=== PATIENT | female | born 2000 | race Caucasian/White ===

== ENCOUNTER 2023-04-30 11:36 | Outpatient (CLI) | payer OTHER, SELFPAY ==
[2023-04-30 13:27] LABS: Thyroid Stimulating Hormone 0.561 uIU/mL (0.465-4.680)
[2023-05-03 13:09] LABS: Testosterone Total 57 ng/dL (2-45)
[2023-05-04 07:56] LABS: FSH 6.6 mIU/mL (***); LH 15.2 mIU/mL (***)
[2023-05-06 03:17] LABS: Estradiol, Ultrasensitive 364 pg/mL
== END 2023-04-30 11:37 | disposition home or self-care (01) ==
PROVIDERS: PCP Student in an Organized Health Care Education/Training Program; Visit Provider Student in an Organized Health Care Education/Training Program
DX: N91.2 Amenorrhea, unspecified (principal)
CPT/HCPCS: 36415; 82670; 83001; 83002; 84403; 84443

== ENCOUNTER → 2023-05-02 10:44 | Outpatient (CLI) | payer OTHER, SELFPAY ==
--- NOTE | ~2023-05-02 | US_ITS ---
EXAMINATION: US pelvic complete w TV DATE: 05/02/2023 11:38 INDICATION: Irregular periods Comparison:No prior studies for comparison. TECHNIQUE: Multiple transabdominal and endovaginal sonographic images of the pelvis performed. FINDINGS: The uterus measures 7.6 x 4.4 x 5.7 cm. The endometrial complex measures 11 mm. The right ovary measures 3.8 x 2.3 x 2.6 cm and the left ovary measures 3.5 x 1.7 x 2.6 cm. There ar e small follicles in each ovary. Normal doppler signal in both ovaries. There is no free fluid in the pelvis. There are no abnormal masses seen on either side. IMPRESSION: 1. Normal pelvic ultrasound. Reviewed, dictated and finalized at location A.
== END ==
PROVIDERS: PCP Student in an Organized Health Care Education/Training Program; Visit Provider Student in an Organized Health Care Education/Training Program
DX: N91.2 Amenorrhea, unspecified (principal)
CPT/HCPCS: 76830; 76856

== ENCOUNTER 2023-06-07 08:12 | Outpatient (CLI) | payer OTHER, SELFPAY ==
[2023-06-07 08:44] LABS: Basophils Percent Auto 0.5 % (0.2-1.2); Eosinophils Absolute Auto 0.1 K/mm3 (0-0.3); Eosinophils Percent Auto 1.4 % (0-4.4); Hematocrit 39.7 % (37.0-47.0); Hemoglobin 13.3 g/dL (12.0-15.0); Immature Granulocyte Absolute 0.02 K/mm3 (0.00-0.031); Immature Granulocyte Percent A 0.3 % (0-0.5); Lymphocytes Absolute Auto 1.31 K/mm3 (0.9-3.2); Lymphocytes Percent Auto 19.7 % (18.3-44.2); Mean Corpuscular HGB Conc 33.5 g/dl (32-36); Mean Corpuscular Hemoglobin 30.4 pg (26-34); Mean Corpuscular Volume 90.8 fl (80-100); Mean Platelet Volume 11.1 fl (7.4-10.4); Monocytes Absolute Auto 0.3 K/mm3 (0.1-0.6); Monocytes Percent Auto 5.1 % (2.6-8.5); Neutrophils Absolute Auto 4.9 K/mm3 (1.3-6.7); Platelet Count Result 235 k/mm3 (150-375); Red Blood Count 4.37 M/mm3 (4.2-5.4); Red Cell Distribution Width 12.9 % (11.5-14.5); White Blood Count 6.6 K/mm3 (4.5-10.0)
[2023-06-07 09:28] LABS: HIV 1/2 Ab P24 Ag Result Negative (Negative)
[2023-06-07 09:41] LABS: Hepatitis B Surface Antigen Negative (Negative); Rubella IgG Antibody 48.1 IU/ML
[2023-06-09 05:59] LABS: Rapid Plasma Reagin Non-Reactive (NonReactive)
== END 2023-06-07 08:13 | disposition home or self-care (01) ==
LOC: ANHLAB 08:13
PROVIDERS: PCP Student in an Organized Health Care Education/Training Program; Visit Provider Student in an Organized Health Care Education/Training Program
DX: N94.89 Other specified conditions associated with female genital organs and menstrual cycle (principal)
CPT/HCPCS: 36415; 84702; 85025; 86592; 86644; 86703; 86747; 86762; 86787; 86850; 86900; 86901; 87340; G0432

== ENCOUNTER 2023-11-06 07:38 | Outpatient (CLI) | payer OTHER, SELFPAY ==
[2023-11-06 09:44] LABS: Basophils Percent Auto 0.3 % (0.2-1.2); Eosinophils Absolute Auto 0.1 K/mm3 (0-0.3); Eosinophils Percent Auto 1.1 % (0-4.4); Hematocrit 41.6 % (37.0-47.0); Hemoglobin 13.4 g/dL (12.0-15.0); Immature Granulocyte Absolute 0.16 K/mm3 (0.00-0.031); Immature Granulocyte Percent A 1.6 % (0-0.5); Lymphocytes Absolute Auto 1.66 K/mm3 (0.9-3.2); Lymphocytes Percent Auto 16.2 % (18.3-44.2); Mean Corpuscular HGB Conc 32.2 g/dl (32-36); Mean Corpuscular Hemoglobin 30.3 pg (26-34); Mean Corpuscular Volume 94.1 fl (80-100); Mean Platelet Volume 11.3 fl (7.4-10.4); Monocytes Absolute Auto 0.7 K/mm3 (0.1-0.6); Monocytes Percent Auto 6.3 % (2.6-8.5); Neutrophils Absolute Auto 7.7 K/mm3 (1.3-6.7); Neutrophils Percent Auto 74.5 % (45.5-73.1); Platelet Count Result 239 k/mm3 (150-375); Red Blood Count 4.42 M/mm3 (4.2-5.4); Red Cell Distribution Width 12.7 % (11.5-14.5); White Blood Count 10.3 K/mm3 (4.5-10.0)
[2023-11-06 10:12] LABS: Glucose 1 Hour PP 50gm Dose 65 mg/dL
[2023-11-06 10:48] LABS: HIV 1/2 Ab P24 Ag Result Negative (Negative)
== END 2023-11-06 07:39 | disposition home or self-care (01) ==
LOC: ANHLAB 07:40
PROVIDERS: PCP Student in an Organized Health Care Education/Training Program; Visit Provider Obstetrics & Gynecology
DX: Z34.90 Encounter for supervision of normal pregnancy, unspecified, unspecified trimester (principal); R30.0 Dysuria; Z3A.00 Weeks of gestation of pregnancy not specified
CPT/HCPCS: 36415; 82947; 85025; 86703; 87086; 87088; G0432

== ENCOUNTER 2023-12-11 10:24 | Outpatient (CLI) | payer OTHER, SELFPAY ==
[2023-12-11] VITALS (28 sets, daily range): BP systolic 99–126; BP diastolic 54–68; PULSE 85–112; O2SAT 97–100; BMI 40.4
[2023-12-11 11:21] LABS: Basophils Percent Auto 0.3 % (0.2-1.2); Eosinophils Absolute Auto 0.1 K/mm3 (0-0.3); Eosinophils Percent Auto 1.3 % (0-4.4); Hematocrit 37.8 % (37.0-47.0); Hemoglobin 12.8 g/dL (12.0-15.0); Immature Granulocyte Absolute 0.19 K/mm3 (0.00-0.031); Immature Granulocyte Percent A 1.8 % (0-0.5); Lymphocytes Absolute Auto 1.47 K/mm3 (0.9-3.2); Lymphocytes Percent Auto 13.9 % (18.3-44.2); Mean Corpuscular HGB Conc 33.9 g/dl (32-36); Mean Corpuscular Hemoglobin 30.8 pg (26-34); Mean Corpuscular Volume 90.9 fl (80-100); Mean Platelet Volume 11.2 fl (7.4-10.4); Monocytes Absolute Auto 0.6 K/mm3 (0.1-0.6); Neutrophils Absolute Auto 8.1 K/mm3 (1.3-6.7); Neutrophils Percent Auto 76.7 % (45.5-73.1); Platelet Count Result 238 k/mm3 (150-375); Red Blood Count 4.16 M/mm3 (4.2-5.4); Red Cell Distribution Width 13.2 % (11.5-14.5); White Blood Count 10.6 K/mm3 (4.5-10.0)
--- NOTE | 2023-12-11 11:25 | PC.NURSE ---
Pt is just now able to use the bathroom to leave a urine sample.
[2023-12-11 11:28] LABS: Alanine Aminotransferase 15 U/L (6-35); Albumin Level 3.6 g/dL (3.5-5.1); Alkaline Phosphatase 106 U/L (38-126); Anion Gap 6 mmol/L (4-12); Aspartate Amino Transferase 18 U/L (14-36); Bilirubin,Total 0.4 mg/dL (0.2-1.3); Blood Urea Nitrogen 5 mg/dL (7-17); Calcium 8.5 mg/dL (8.4-10.2); Carbon Dioxide 22 mmol/L (22-30); Chloride 108 mmol/L (98-107); Estimated Glomerular Filt Rate > 60; Glucose 93 mg/dL (65-110); Potassium 3.8 mmol/L (3.4-5.0); Sodium 136 mmol/L (137-145); Uric Acid 4.3 mg/dL (2.5-7.5)
[2023-12-11] MEDS: ACETAMINOPHEN 500 MG TABLET 1000 MG PO (11:47)
[2023-12-11 11:54] LABS: Appearance Urine Clear (Clear); Bacteria Urine Rare /hpf; Bilirubin Urine Negative (Negative); Blood Urine Negative (Negative); Color Urine Yellow (Yellow); Glucose Urine UA Negative (Negative); Ketones Urine Negative (Negative); Leukocyte Esterase Ur Trace LEU/UL (Negative); Nitrate Urine Negative (Negative); Non Pathogenic Casts 0-2; Protein Urine Negative (Negative); Specific Grav Ur 1.013 (1.001-1.035); Squamous Epithelial Cell Urine Few /hpf (Few); Urobilinogen Urine 0.2 mg/dL (<2.0); WBC Urine 0-5 /hpf (0-3); pH Urine 8.5 (5.0-9.0)
[2023-12-11 11:57] LABS: Add Urine Microscopic? YES
[2023-12-11 12:00] LABS: Creatinine Urine 88.8 mg/dL; Total Protein Urine Random 12 mg/dL; Ur Ttl Prot Creatinine Ratio 0.14 mg/mg (0-0.20)
--- NOTE | 2023-12-11 12:18 | PC.NURSE ---
Dr. Bourne informed of BP's, lab results, reactive NST, gave pt Tylenol 30 mins ago and headache has decreased from a 5 down to 2 out of 10. Discussed how pt feels like she gets anxious / stressed, then feels her HR increase, and then her BP increases. Pt had blurred vision and emesis this am. Discussed pt was on Sertraline but not taking anymore. To ask pt if she wants to resume Sertraline.
--- NOTE | 2023-12-11 12:29 | PC.NURSE ---
Dr. Bourne informed pt had previously taken Sertraline without any improvement in depression and anxiety and took it for 2 weeks during this and stopped because it wasn't helping and she doesn't want to take it. Informed I reviewed relaxing and calming techniques with pt to try when she starts feeling anxious/ stressed. To use those techniques first and then she can check her BP or if she is unable to calm herself she can check her BP then. states pt doesn't have to do the 24 hr urine she was scheduled to start tomorrow since her PCR is well within normal limits. OK to discharge to home.
== END 2023-12-11 12:35 | disposition home or self-care (01) ==
LOC: ANHOBOP 10:29 → ANHOBPP 10:30
PROVIDERS: PCP Physician Assistant; Visit Provider Obstetrics & Gynecology
DX: O13.9 Gestational [pregnancy-induced] hypertension without significant proteinuria, unspecified trimester (principal); Z3A.00 Weeks of gestation of pregnancy not specified
CPT/HCPCS: 36415; 59025; 80053; 81001; 82570; 84156; 84550; 85025; 99199; A9270

== ENCOUNTER 2023-12-18 09:00 | Observation (INO) | payer OTHER, SELFPAY ==
[2023-12-18] VITALS (33 sets, daily range): BP systolic 100–113; BP diastolic 62–74; PULSE 87–110; O2SAT 96–100; BMI 40.9
--- NOTE | 2023-12-18 09:44 | OBADM ---
This patient, Agnes Diaz, admitted to the OB room 116 for observation. Patient/family oriented to hospital policies and general routines including ID bracelet, bed and alarms, visiting hours, pain management, procedures, bathroom and other care routines, personal items, smoking policy, room service/diet, and visiting hours. Patient/Family are encouraged to report perceived risks to care and to ask questions if they do not understand what they are told or what they should do.
[2023-12-18 09:59] LABS: Appearance Urine Cloudy (Clear); Bacteria Urine 2+ /hpf; Bilirubin Urine 1+ (Negative); Blood Urine Negative (Negative); Color Urine Dark Yellow (Yellow); Glucose Urine UA Negative (Negative); Ketones Urine Trace mg/dL (Negative); Leukocyte Esterase Ur Trace LEU/UL (Negative); Need Manual Microscopic Reviewed; Nitrate Urine Negative (Negative); Non Pathogenic Casts 0-2; Protein Urine Trace mg/dL (Negative); Specific Grav Ur 1.027 (1.001-1.035); Squamous Epithelial Cell Urine Moderate /hpf (Few); pH Urine 6.5 (5.0-9.0)
[2023-12-18 10:02] LABS: Add Urine Microscopic? YES
--- NOTE | 2023-12-22 09:31 | P.PNOB_ITS ---
OB - Triage/Final Diagnosis Visit Information Comments/Additional reasons for admission: I have assessed the risk for this patient, Agnes Diaz, and determined that she would benefit from observation care. Evaluation Laboratory results: Laboratory Tests 12/18/23 09:28 Urine Color Dark yellow Urine Appearance Cloudy H Urine pH 6.5 Ur Specific [place] 1.027 Urine Protein Trace Urine Glucose (UA) Negative Urine Ketones Trace H Ur Blood (Man) Negative Urine Nitrate Negative Urine Bilirubin 1+ H Urine Urobilinogen 1.0 Add Ur Microanalysis Reviewed Leukocyte Esterase Rfl Trace H Urine RBC 6-10 H Urine WBC 6-10 H Ur Squamous Epith Cells Moderate Urine Bacteria 2+ H Urine Casts 0-2 Final Diagnosis (1) Abdominal pain affecting : Code(s): O26.899 - Other specified related conditions, unspecified trimester; R10.9 - Unspecified abdominal pain Status: Acute
== END 2023-12-18 11:48 | disposition home or self-care (01) ==
PROVIDERS: Admitting Provider Obstetrics & Gynecology; PCP Physician Assistant; Visit Provider Obstetrics & Gynecology
DX: O26.893 Other specified pregnancy related conditions, third trimester (principal); R10.9 Unspecified abdominal pain; Z3A.35 35 weeks gestation of pregnancy
CPT/HCPCS: 81001; 84112; 87086; 87088; G0378; G0379

== ENCOUNTER 2023-12-31 17:42 | Outpatient (CLI) | payer OTHER, SELFPAY ==
[2023-12-31 19:21] VITALS: BP 110/66; PULSE 86
== END 2023-12-31 19:45 | disposition home or self-care (01) ==
LOC: ANHOBOP 19:00
PROVIDERS: PCP Physician Assistant; Visit Provider Obstetrics & Gynecology
DX: O42.90 Premature rupture of membranes, unspecified as to length of time between rupture and onset of labor, unspecified weeks of gestation (principal); Z3A.00 Weeks of gestation of pregnancy not specified
CPT/HCPCS: 59025; 84112

== ENCOUNTER 2024-01-14 09:56 | Outpatient (CLI) | payer OTHER, SELFPAY ==
[2024-01-14 10:38] LABS: Basophils Percent Auto 0.3 % (0.2-1.2); Eosinophils Absolute Auto 0.3 K/mm3 (0-0.3); Eosinophils Percent Auto 2.8 % (0-4.4); Hematocrit 39.3 % (37.0-47.0); Hemoglobin 13.1 g/dL (12.0-15.0); Immature Granulocyte Absolute 0.11 K/mm3 (0.00-0.031); Immature Granulocyte Percent A 1.2 % (0-0.5); Lymphocytes Absolute Auto 1.65 K/mm3 (0.9-3.2); Lymphocytes Percent Auto 17.8 % (18.3-44.2); Mean Corpuscular HGB Conc 33.3 g/dl (32-36); Mean Corpuscular Hemoglobin 30.2 pg (26-34); Mean Corpuscular Volume 90.6 fl (80-100); Mean Platelet Volume 11.5 fl (7.4-10.4); Monocytes Absolute Auto 0.7 K/mm3 (0.1-0.6); Monocytes Percent Auto 7.1 % (2.6-8.5); Neutrophils Absolute Auto 6.5 K/mm3 (1.3-6.7); Neutrophils Percent Auto 70.8 % (45.5-73.1); Platelet Count Result 214 k/mm3 (150-375); Red Blood Count 4.34 M/mm3 (4.2-5.4); Red Cell Distribution Width 13.2 % (11.5-14.5); White Blood Count 9.3 K/mm3 (4.5-10.0)
[2024-01-14 11:31] LABS: HIV 1/2 Ab P24 Ag Result Negative (Negative)
[2024-01-14 16:23] LABS: Rapid Plasma Reagin Non-Reactive (NonReactive)
--- NOTE | 2024-01-15 07:19 | PC.NURSE ---
Received call from blood bank regarding identification of positive antibody. The antibody is JKA THey have ordered appropriate blood for this antiboday and will have it available prior to . Dr. Bourne, the patient and nursery staff all updated.
== END 2024-01-14 09:57 | disposition home or self-care (01) ==
LOC: ANHLAB 09:58
PROVIDERS: PCP Physician Assistant; Visit Provider Obstetrics & Gynecology
DX: Z01.812 Encounter for preprocedural laboratory examination (principal)
CPT/HCPCS: 36415; 85025; 86592; 86703; 86850; 86870; 86880; 86900; 86901; 86902; 86905; 86922; 86971; G0432

== ENCOUNTER 2024-01-15 08:54 | Inpatient (IN) | payer OTHER, SELFPAY ==
--- NOTE | 2024-01-14 14:32 | PC.NURSE ---
Received a call from [facility] stating pt had an antibody when doing blood type that will need to be identified prior to her surgery. This is a send out lab and pt will need to return to have it drawn. Contacted patient and she is returning now. Notified Dr. Bourne.
[2024-01-15] VITALS (68 sets, daily range): BP systolic 74–126; BP diastolic 36–75; PULSE 57–141; RESP 13–20; TEMP 36.4–36.8; O2SAT 90–100; BMI 39.2; BMI 40.4
[2024-01-15] MEDS: ACETAMINOPHEN 500 MG TABLET 1000 MG PO (09:15)
[2024-01-15] MEDS: LACTATED RINGERS 1,000 ML 125 ML IV CONT (09:33)
--- NOTE | 2024-01-15 09:37 | LDADM ---
This patient, Agnes Diaz, was admitted to Labor/Delivery/Recovery 119 on 01/15/24 at 08:54. Plans for labor, pain management and were discussed with patient. Patient/family oriented to hospital policies and general routines including ID bracelet, bed and alarms, visiting hours, pain management, procedures, bathroom and other care routines, personal items, smoking policy, room service/diet and guest tray routines, security routines, and visiting hours. Patient/Family are encouraged to report perceived risks to care and to ask questions if they do not understand what they are told or what they should do. See OBIX for further documentation.
[2024-01-15] MEDS: LACTATED RINGERS 1,000 ML 999 ML IV CONT (10:07)
--- NOTE | 2024-01-15 10:20 | WPDANESEPPF ---
Anes - Initial Pre Proc Eval Procedure: Operation Date: 01/15/24 07:30 Proposed Procedures p Primary Section - Katherine Bourne MD Date/Time: 01/15/24 10:20 Surgeon: Katherine Bourne MD Pre Op Diagnosis: c/s Patient Data Age: 23 Gender: F Height: 1.68 m Weight: 113.6 kg Last Vital Signs Pulse 85 01/15/24 10:00 BP 117/74 01/15/24 10:00 Allergies Allergy/AdvReac Type Severity Reaction Status Date / Time No Known Allergies Allergy Verified 01/14/24 08:53 Home Medications Medication Instructions Recorded Confirmed Type vits no.126-ferrous fum 1 tablet PO DAILY 06/06/23 01/15/24 History 28 mg iron-folic acid 800 mcg tablet (Classic ) magnesium 200 mg tablet 400 mg PO DAILY 12/11/23 01/15/24 History metoclopramide HCl 10 mg tablet 10 mg PO Q6H PRN nausea and 12/12/23 01/14/24 Rx (Reglan) vomiting #20 tabs promethazine 25 mg tablet 25 mg PO Q6H PRN nausea and 12/12/23 01/15/24 Rx vomiting #30 tabs acetaminophen 500 mg capsule 1,000 mg PO Q6H PRN Pain 12/18/23 01/14/24 History Patient hx anesthesia problems: none Family hx anesthesia problems: none Results Review: All pre-operative results and documents have been reviewed as part of the pre-operative evaluation. [facility] Past Medical History Medical History ADHD CRPS (complex regional pain syndrome type I) Suppression of menses Surgical History Surgical History (Updated 01/15/24 @ 10:21 by Steffen Burnett MD) H/O arthroscopic knee surgery History of kidney surgery Family History Family History Mother Thyroid cancer Father Diabetes mellitus Grandparent Diabetes mellitus Social History Social History Smoking status: Never smoker Second hand tobacco smoke exposure: No Alcohol intake: current Alcohol use details: very rare Substance use: never Do You Feel Safe in your Home?: Yes Lack of Transportation: No Lack of Food: Sometimes True Current Housing: I Have Housing Concerned About Future Housing: No Difficulty Paying Gas/Electric Bills: No Difficulty Paying for Meds: No Currently Unemployed: No Education: Bachelor's Degree Difficulty w/ Childcare or Family Care: No Living arrangements: with family Occupation/Education: occupation Gender identity (if verbalized by the patient): Female Sexual Orientation (if Verbalized by the Patient): Straight or Heterosexual Spiritual care concerns: No Anes - Eval Final PreProcedure Day of Procedure 01/15/24 10:20 Patient weight: obese Heart: regular rate and rhythm Lungs: clear to auscultation Airway: Mallampati scale class II Neurological: alert and oriented Last oral intake: >/= 8 hours ASA classification: II Emergent: no Anesthetic plan: proceed Anesthesia type and monitoring: regional spinal and standard monitoring Results Review: All pre-operative results and documents have been reviewed as part of the pre-operative evaluation. Informed Consent: The patient's anesthetic plan and its attendant risks and benefits were discussed with the patient/family/POA. Questions were solicited and answers provided to the satisfaction of the patient/family/POA.
[2024-01-15] MEDS: FAMOTIDINE 20 MG/2 ML VIAL IV PUSH (10:45)
[2024-01-15] MEDS: ONDANSETRON INJ 4 MG/2 ML VIAL IV PUSH (10:46)
--- NOTE | 2024-01-15 11:16 | PC.NURSE ---
1110--Dr. Bourne at for u/s, position now vertex per u/s. Pt. requesting to have c/s, Dr. Bourne discussing risk for c/s vs. vaginal delivery. Pt. requesting to have to time to discuss with her .
--- NOTE | 2024-01-15 11:22 | PM.IMHP ---
H&P: HPI History of Present Illness Date/Time: 01/15/24 10:40 Chief Complaint: breech Narrative: Agnes is a 23yo @ 39.0wks who presents for scheduled due to breech malpresentation. He has been moving normally; but not made any big movements. She has been having irregular contractions. No VB or LOF. On pre-op testing for her , she was found to have an antibody. It was sent off for further testing and has been confirmed as a weak Jka antibody. [facility] blood bank has provided us blood that is Jka negative. Her is complicated by: - Obesity - Complex region pain syndrome; PT referral (refused) - LGA fetus; AC/HC/BPD >98%ile - BREECH - Newly diagnosed weakly positive Jka antibody Review of Systems Constitutional: Constitutional: Denies chills, Denies fever(s) and Denies headache(s) Eyes: Eyes: Denies change in vision ENT: Denies headache(s) Cardiovascular: Cardiovascular: Denies chest pain and Denies dyspnea Respiratory: Respiratory: Denies dyspnea Genitourinary: Genitourinary: Denies abnormal vaginal bleeding and Denies vaginal discharge Neurologic: Denies headache(s) Psychiatric: Psychiatric: Denies anxiety and Denies depression [facility] Past Medical History Medical History ADHD CRPS (complex regional pain syndrome type I) Suppression of menses Surgical History Surgical History (Updated 01/15/24 @ 10:21 by Steffen Burnett MD) H/O arthroscopic knee surgery History of kidney surgery Family History Family History Mother Thyroid cancer Father Diabetes mellitus Grandparent Diabetes mellitus Social History Social History Smoking status: Never smoker Alcohol intake: current Alcohol use details: very rare Substance use: never Lack of Transportation: No Lack of Food: Never True Current Housing: I Have Housing Concerned About Future Housing: No Difficulty Paying Gas/Electric Bills: No Difficulty Paying for Meds: No Currently Unemployed: No Education: Bachelor's Degree Difficulty w/ Childcare or Family Care: No Living arrangements: with family Occupation/Education: occupation Gender identity (if verbalized by the patient): Female Sexual Orientation (if Verbalized by the Patient): Straight or Heterosexual Spiritual care concerns: No Meds Home Medications and Allergies Home Medications Medication Instructions Recorded Confirmed Type vits no.126-ferrous fum 1 tablet PO DAILY 06/06/23 01/15/24 History 28 mg iron-folic acid 800 mcg tablet (Classic ) magnesium 200 mg tablet 400 mg PO DAILY 12/11/23 01/15/24 History metoclopramide HCl 10 mg tablet 10 mg PO Q6H PRN nausea and 12/12/23 01/14/24 Rx (Reglan) vomiting #20 tabs promethazine 25 mg tablet 25 mg PO Q6H PRN nausea and 12/12/23 01/15/24 Rx vomiting #30 tabs acetaminophen 500 mg capsule 1,000 mg PO Q6H PRN Pain 12/18/23 01/14/24 History Allergies Allergy/AdvReac Type Severity Reaction Status Date / Time No Known Allergies Allergy Verified 01/14/24 08:53 Exam Const: General: cooperative, no acute distress and obese Nutritional Appearance: obese Orientation/consciousness: patient oriented x3 Resp: Effort & Inspection: normal respiratory effort Cardio: Rate: regular rate GI: GI Palp: No abdominal tenderness : Other: FHT's: 155's/ mod pattie/ + accels/ no decels - cat 1 TOCO: irregular ctxs Cervix: 1/thick/-4 Presentation: CEPHALIC confirmed on bedside US Skin: General skin exam: normal color Neuro: General: patient oriented x3 Extrem: General: normal to inspection Psych: Appearance: grossly normal Affect: normal affect Attitude: cooperative Assessment and Plan Assessment and plan (1) Breech presentation: Qualifiers: Fetus num
--- NOTE | 2024-01-15 11:22 | WPDHPUPDATE1 ---
History and Physical Update Update Date/Time: 01/15/24 10:45 History and Physical has been reviewed, including an updated exam of the patient. There are NO changes in the patient's condition. Risks, benefits, and alternatives have been discussed and questions answered. Patient agrees to proceed with primary section.
[2024-01-15] MEDS: ceFAZolin 2 GM/D5W 50 ML 2 GM/50 ML BAG IVPB (11:26)
--- NOTE | 2024-01-15 12:32 | W.PM.OBCSD ---
OB - Delivery Note Procedure Delivery date: 01/15/24 Pre-op diagnosis: Macrosomia (was breech but converted to cephalic; pt desired to still proceed with pLTCS) Post-op Diagnosis: Same Induction method: None Delivery monitor: External FHT and External Uterine Prior to decision for section, ACOG/SM labor guidelines were considered and discussed with the patient and staff. Decision made to proceed with the section.: Yes Procedure Performed: Primary Primary branch: low cervical, transverse Surgeon: Katherine Bourne MD Anesthesia type: Spinal Description of Procedure/Findings: Male fetus delivered cephalic; clear fluid. Normal tubes and ovaries bilaterally. Specimen: Yes (placenta) Estimated Blood Loss: 855 Pathology: Yes Complications: No immediate complications Condition: Stable Disposition: PACU [place] Baby Date of : 01/15/24 Time of : 11:59 Weeks of gestation at delivery: 39 gender: Male Weight (pounds): 10 Weight (ounces): 3 presentation: vertex Placenta delivery description: Expressed Cord Vessel Description: 3 Vessels and Delayed Cord Clamping score one minute: 8 score five minutes: 8 Narrative: Agnes was counseled on all risks and benefits in detail and counseled that since he verted to cephalic, we could do elective IOL. She declined IOL and desired to proceed with section due to him being LGA. She was taken to the operating room where spinal was placed. She was then prepped and draped in the normal sterile fashion. She received 2g Ancef and a time out was performed. A Pfannenstiel incision was made in the skin and carried down to the underlying fascia. The fascia was nicked on either side of the midline and the fascial incision was extended laterally and superiorly using curved Mohan scissors. The fascia was then elevated using Shawn clamps and the underlying rectus muscles were dissected off the fascia, superiorly and inferiorly. The rectus muscles were then in the midline and the peritoneum was entered bluntly. Once adequate exposure was obtained, a Mobius self retractor was placed within the abdomen. A bladder flap was created. A low transverse incision was made on the lower uterine segment and clear fluid was noted. The occiput was brought to the hysterotomy and the head was easily delivered. The shoulders and body then followed without complications. The had spontaneous cry and the mouth and nose were bulb suctioned. The cord was clamped and cut and the was handed off to the awaiting pediatric nurse. A segment of the cord was collected for cord gases. The remaining cord blood was collected for typing. Two large venous sinuses were noted to be bleeding and ring forceps were placed. With Pitocin infusing, the placenta delivered with gentle traction on the cord without complications. The uterus was then cleared out of all clots and debris using a clean, moist lap. The hysterotomy was then repaired in a running, interlocking fashion using 0 Vicryl. A second layer imbricating suture was then made using 0 Vicryl. The hysterotomy was found to be hemostatic and good uterine tone was noted. The bilateral adnexa were examined and found to be normal. The pelvis was cleared of all clots and fluid. The Mobius retractor was removed from the abdomen. The peritoneum, muscle, and fascia were examined and made hemostatic with Bovie cautery. The fascia was then repaired using a 0 Vicryl suture in a running fashion. The subcutaneous tissue was then irrigated and made hemostatic with Bovie cautery. The subcutaneous tissue was then reapproximated using 2-0 Vicryl. The skin was then closed using 4-0 Monocryl in a running subcuticular fashion. A Mepilex dressing was placed over the incision. Sponge, lap, needle and instrument counts were correct at the end of the procedure x2. The patient tolerated the procedure well and was taken
[2024-01-15] MEDS: fentaNYL CITRATE INJ (*CRX) 100 MCG/2 ML VIAL 25 MCG IV PUSH ×3 (13:02→14:44)
[2024-01-15] MEDS: LIDOCAINE 5% PATCH 1 PATCH TRANSDERM (13:08)
[2024-01-15] MEDS: OXYTOCIN 30 UNITS/NS 500 ML 30 UNITS/500 ML BAG 125 UNITS IV CONT (13:28)
[2024-01-15] MEDS: diphenhydrAMINE HCl INJ 50 MG/ML VIAL 25 MG IV PUSH ×3 (14:42→23:15)
--- NOTE | 2024-01-15 16:05 | OBPPTRN ---
1555-Patient transferred to post room #290 via stretcher. Support person present. Oriented to unit, room, information board, rooming in, admission packet and security measures. Patient verbalizes understanding.
[2024-01-15] MEDS: KETOROLAC 15 MG/ML VIAL (*BKC) IV PUSH ×2 (16:39→23:45)
[2024-01-15] MEDS: ACETAMINOPHEN 325 MG TABLET 650 MG PO ×2 (16:39→23:45)
[2024-01-15] MEDS: SIMETHICONE 80 MG TAB.CHEW PO (16:39)
[2024-01-15] MEDS: DOCUSATE SODIUM 100 MG CAPSULE PO (16:39)
[2024-01-15] MEDS: DEXTROSE 5%/0.45% SOD CHL 1,000 ML 125 ML IV CONT (19:10)
[2024-01-16] VITALS: BP 119/70; PULSE 61; RESP 20; TEMP 37.1; O2SAT 99
[2024-01-16 05:41] LABS: Basophils Percent Auto 0.3 % (0.2-1.2); Eosinophils Absolute Auto 0.2 K/mm3 (0-0.3); Eosinophils Percent Auto 1.4 % (0-4.4); Hematocrit 30.4 % (37.0-47.0); Hemoglobin 9.6 g/dL (12.0-15.0); Immature Granulocyte Absolute 0.09 K/mm3 (0.00-0.031); Immature Granulocyte Percent A 0.8 % (0-0.5); Lymphocytes Absolute Auto 1.36 K/mm3 (0.9-3.2); Lymphocytes Percent Auto 12.2 % (18.3-44.2); Mean Corpuscular HGB Conc 31.6 g/dl (32-36); Mean Corpuscular Hemoglobin 29.8 pg (26-34); Mean Corpuscular Volume 94.4 fl (80-100); Mean Platelet Volume 12.4 fl (7.4-10.4); Monocytes Absolute Auto 0.9 K/mm3 (0.1-0.6); Monocytes Percent Auto 8.4 % (2.6-8.5); Neutrophils Absolute Auto 8.6 K/mm3 (1.3-6.7); Neutrophils Percent Auto 76.9 % (45.5-73.1); Platelet Count Result 165 k/mm3 (150-375); Red Blood Count 3.22 M/mm3 (4.2-5.4); Red Cell Distribution Width 13.4 % (11.5-14.5); White Blood Count 11.2 K/mm3 (4.5-10.0)
[2024-01-16] MEDS: ACETAMINOPHEN 325 MG TABLET 650 MG PO ×3 (05:45→17:58)
[2024-01-16] MEDS: KETOROLAC 15 MG/ML VIAL (*BKC) IV PUSH ×2 (05:47→12:23)
--- NOTE | 2024-01-16 07:21 | P.PNOB_ITS ---
OB - PN: Subj Subjective Date/time seen: 01/16/24 09:00 Narrative: POD#1 Agnes reports doing well today. 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 Her pain is controlled. She is tolerating regular diet. She has already voided spontaneously. She has not passed gas. She has ambulated in her room, did feel slightly dizzy. She denies any issues with her incision. She is breast feeding/pumping, but will likely only bottle feed. She would like her son circumcised, but he is curr ently on D10 for low blood sugars. OB - PN: Obj Data Labs 01/16/24 03:16 OB - PN A/P Assessment and Plan (1) S/P section: Code(s): Z98.891 - History of uterine scar from previous surgery Status: Acute Plan day: 1 Plan: routine care Comments: - Venofer x1; drop in H/H appropriate for QBL during surgery, repeat CBC ordered for in the AM - PO pain meds - Regular diet - Ambulation and hydration encouraged - Continue putting baby to breast q2-3hr - Circumcision performed without issue Time Spent With Patient Time: Total time spent is greater than 50% in coordination of care (as documented) at patient's floor/unit and/or counseling patient: Review of Systems Constitutional: Constitutional: Denies chills, Denies fever(s) and Denies headache(s) Eyes: Eyes: Denies change in vision ENT: Denies dizziness and Denies headache(s) Cardiovascular: Cardiovascular: Denies chest pain, Denies palpitations and D enies dyspnea Respiratory: Respiratory: Denies cough and Denies dyspnea Gastrointestinal: Gastrointestinal: Denies nausea and Denies vomiting Genitourinary: Comments: normal bleeding Neurologic: Denies dizziness and Denies headache(s) Endocrine: Endocrine: Denies palpitations Exam Const: General: cooperative, healthy appearing, comfortable and no acute distress Orientation/consciousness: patient oriented x3 Resp: Effort & Inspection: normal respiratory effort Auscultation: clear to auscultation bilaterally Cardio: Rate: regular rate GI: Inspection: non-distended and incision (covered with clean dressing) GI Palp: Yes abdominal tenderness (appropriate) and Yes Soft to palpation Auscultation: normal bowel sounds : Other: fundus firm Skin: General skin exam: normal color Neuro: General: patient oriented x3 Extrem: General: normal to inspection Psych: Appearance: grossly normal Affect: normal affect Attitude: cooperative
--- NOTE | 2024-01-16 07:58 | WPDANLDPN2 ---
Anes-Prog Note L&D Date/Time: 01/16/24 07:58 Comfortable throughout: section Neuraxial method: spinal Epidural/Spinal procedure site: clean & non-tender Neuro status: Neuro function grossly intact. Cardiovascular status: normal Respiratory status: normal Airway patency: baseline Mental status: baseline Post-Op hydration status: normal Vital Signs: Last Vital Signs Temp 37.1 C 01/16/24 00:00 Pulse 61 01/16/24 00:00 Resp 20 01/16/24 00:00 BP 119/70 01/16/24 00:00 Pulse Ox 99 01/16/24 00:00 O2 Del Method Room Air 01/15/24 15:15 Pain score (VAS): 2/10 I/O: Intake & Output 01/15/24 01/15/24 01/16/24 15:59 23:59 07:59 Intake Total 1002.1 Output Total 855 400 Balance 147.1 -400 Post-procedural complaints: none Patient feedback: Patient satisfied with anesthetic care.
--- NOTE | 2024-01-16 07:58 | WPDANLDNPN2 ---
Anes-Prog Note L&D-Neuraxial Date/Time: 01/16/24 07:58 Neuraxial medications: intrathecal PF morphine Opiod-related complaints: none Patient feedback: Patient satisfied with post-operative pain management.
[2024-01-16 09:00] VITALS: BP 111/59; PULSE 82; RESP 16; TEMP 36.6; O2SAT 99
[2024-01-16] MEDS: IRON SUCROSE COMPLEX 500 MG in SODIUM CHLORIDE 0.9% IV 250 ML 79 MG IVPB (09:04)
[2024-01-16] MEDS: SIMETHICONE 80 MG TAB.CHEW PO ×3 (09:12→17:14)
[2024-01-16] MEDS: DOCUSATE SODIUM 100 MG CAPSULE PO ×2 (09:12→17:14)
[2024-01-16] MEDS: MULTIVIT/MIN/PREN/FOL AC/IRON TABLET 1 TAB PO (09:12)
[2024-01-16] MEDS: diphenhydrAMINE HCl INJ 50 MG/ML VIAL 25 MG IV PUSH (09:12)
[2024-01-16] MEDS: LIDOCAINE 5% PATCH 1 PATCH TRANSDERM ×2 (14:02→17:18)
[2024-01-16] MEDS: POLYSACCHARIDE IRON COMPLEX 150 MG CAPSULE PO (17:14)
[2024-01-16] MEDS: HYDROcodone/acetaminophen (*CRX) 5-325 MG TABLET 1 TAB PO ×2 (17:17→21:25)
[2024-01-16] MEDS: IBUPROFEN 600 MG TABLET PO (17:58)
[2024-01-16 20:44] VITALS: BP 96/53; PULSE 83; RESP 18; TEMP 36.8; O2SAT 98
[2024-01-17] MEDS: HYDROcodone/acetaminophen (*CRX) 5-325 MG TABLET 1 TAB PO ×4 (01:45→19:31)
[2024-01-17 04:52] LABS: Hematocrit 31.5 % (37.0-47.0); Hemoglobin 10.1 g/dL (12.0-15.0); Mean Corpuscular HGB Conc 32.1 g/dl (32-36); Mean Corpuscular Hemoglobin 30.1 pg (26-34); Mean Corpuscular Volume 93.8 fl (80-100); Mean Platelet Volume 12.1 fl (7.4-10.4); Platelet Count Result 177 k/mm3 (150-375); Red Blood Count 3.36 M/mm3 (4.2-5.4); Red Cell Distribution Width 13.8 % (11.5-14.5); White Blood Count 10.5 K/mm3 (4.5-10.0)
[2024-01-17] MEDS: ACETAMINOPHEN 325 MG TABLET 650 MG PO ×4 (05:46→18:15)
[2024-01-17] MEDS: IBUPROFEN 600 MG TABLET PO ×4 (05:46→18:14)
[2024-01-17 08:35] VITALS: BP 116/62; PULSE 93; RESP 16; TEMP 36.6
[2024-01-17] MEDS: POLYSACCHARIDE IRON COMPLEX 150 MG CAPSULE PO ×2 (08:40→18:15)
[2024-01-17] MEDS: MULTIVIT/MIN/PREN/FOL AC/IRON TABLET 1 TAB PO (08:41)
[2024-01-17] MEDS: DOCUSATE SODIUM 100 MG CAPSULE PO ×2 (08:41→18:15)
[2024-01-17] MEDS: SIMETHICONE 80 MG TAB.CHEW PO ×3 (08:41→18:14)
--- NOTE | 2024-01-17 10:06 | P.PNOB_ITS ---
OB - PN: Subj Subjective Date/time seen: 01/17/24 10:06 Interval history: She states pain improved with medication. Patient comments: tolerating diet and flatus present [place] baby status: other (Baby continues on IV dextrose.) OB - PN: Obj Data Labs 01/17/24 03:37 Labs: Laboratory Results - last 24 hr 01/17/24 03:37 WBC 10.5 H RBC 3.36 L Hgb 10.1 L Hct 31.5 L MCV 93.8 MCH 30.1 MCHC 32.1 RDW 13.8 Plt Count 177 MPV 12.1 H OB - PN A/P Assessment and Plan (1) Delivery by section: Status: Acute Assessment and Plan: POD2 s/p c/s. She is doing well. Routine care. Time Spent With Patient Time: Total time spent is greater than 50% in coordination of care (as documented) at patient's floor/unit and/or counseling patient: Exam Const: General: comfortable and no acute distress Resp: Effort & Inspection: normal respiratory effort Auscultation: clear to auscultation bilaterally Cardio: Rate: regular rate GI: Other: decreased bowel sounds, mildly distended, incision no drainage or erythema, intact Psych: Mental Status: mental status grossly normal Affect: normal affect
[2024-01-17 13:57] VITALS: BP 117/63; PULSE 80
[2024-01-17] MEDS: LIDOCAINE 5% PATCH 1 PATCH TRANSDERM (14:01)
[2024-01-17] MEDS: PROMETHAZINE HCL 25 MG TABLET PO (19:31)
[2024-01-17 20:00] VITALS: BP 113/66; PULSE 87; RESP 20; TEMP 37.1; O2SAT 99
[2024-01-18] MEDS: ACETAMINOPHEN 325 MG TABLET 650 MG PO ×2 (01:30→08:13)
[2024-01-18] MEDS: IBUPROFEN 600 MG TABLET PO ×2 (01:30→08:12)
[2024-01-18 07:23] VITALS: BP 102/61; PULSE 82; RESP 18; TEMP 36.6; O2SAT 98
[2024-01-18 08:00] VITALS: PULSE 82; RESP 18; O2SAT 98
[2024-01-18] MEDS: DOCUSATE SODIUM 100 MG CAPSULE PO (08:07)
[2024-01-18] MEDS: MULTIVIT/MIN/PREN/FOL AC/IRON TABLET 1 TAB PO (08:07)
[2024-01-18] MEDS: SIMETHICONE 80 MG TAB.CHEW PO (08:13)
--- NOTE | 2024-01-18 10:02 | PM.OBPNVD ---
OB - PN: Subj Subjective Date/time seen: 01/18/24 10:02 Interval history: She states pain improved with medication. Patient comments: pain well controlled, tolerating diet and flatus present [place] baby status: doing well OB - PN: Obj Data Labs 01/17/24 03:37 OB - PN A/P Assessment and Plan (1) Delivery by section: Status: Acute Assessment and Plan: POD3. Doing well. Baby doing well. Discharge home today. Discharge precautions discussed. Time Spent With Patient Time: Total time spent is greater than 50% in coordination of care (as documented) at patient's floor/unit and/or counseling patient: Exam Const: General: comfortable and no acute distress Resp: Effort & Inspection: normal respiratory effort Auscultation: clear to auscultation bilaterally GI: Other: dressing intact no soiling Psych: Mental Status: mental status grossly normal
--- NOTE | 2024-01-18 10:50 | PC.NURSE ---
Patient viewed the discharge video Mother & Baby Care, The First Two Weeks . Patient was given the opportunity and encouraged to ask questions. Patient verbalized understanding of information shared and has been given the mother/baby guide for home reference.
--- NOTE | 2024-01-18 20:22 | PM.OBDSVD ---
DS: Admitting Diagnosis Discharge Date 01/18/24 Admitting Diagnosis section Breech malpresentation verted to cephalic spontaneously Macrosomia JKA antibody DS: Discharge Diagnosis Discharge Diagnosis (1) S/P section: Code(s): Z98.891 - History of uterine scar from previous surgery Status: Acute (2) Jka antibody positive: Code(s): R76.8 - Other specified abnormal immunological findings in serum Status: Acute OB - DS: Summary OB Procedures : Ultrasound OB Procedures Intrapartum: low cervical, transverse OB Procedures: : None Peripartum Data Infant Delivery Method: Section Procedures: Procedures Operation Date: 01/15/24 07:30 Actual Procedure Side Surgeon p Section Katherine Bourne MD complications: none [place] 1: Gender: Male Disposition of : home Status at Discharge Functional status at discharge: independent ambulation Overall status at discharge: patient is back to baseline Time Spent with Patient Time attestation: Total time spent providing and/or coordinating discharge services: Time spent: Less than 30 minutes Exam Const: General: cooperative, comfortable, no acute distress and obese Orientation/consciousness: patient oriented x3 Resp: Effort & Inspection: normal respiratory effort Auscultation: clear to auscultation bilaterally Cardio: Rate: regular rate GI: Inspection: non-distended and incision (covered with clean dressing) GI Palp: No abdominal tenderness and Yes Soft to palpation Auscultation: normal bowel sounds : Other: fundus firm Skin: General skin exam: normal color Neuro: General: patient oriented x3 Extrem: General: normal to inspection Psych: Appearance: grossly normal Affect: normal affect Attitude: cooperative DS: Data Data Completed and Pending Pending studies at discharge: Pending at discharge 01/15/24 12:02 Surgical [PTH] Routine Discharge Plan Discharge Attending physician on discharge: Katherine Bourne Discharging Clinician: Dakota Sebastian Anticipated Discharge Date/Time: 01/18/24 10:00 Patient Disposition: Home, Self-Care Activity: may shower and pelvic rest Diet: regular Discharge Instructions: Education: Mom and Baby Guide Given to: Mother Follow-Up: Call your delivering provider's office for an appointment to be seen in: 4 Weeks Mom and baby should come to [facility] for the follow-up appointment. Appointment Date/Time: Friday, January 19, 2024 at 2:30 pm What to expect at your follow-up visit: Blood Pressure Check Physical Assessment Call [phone] if you are unable to keep your appointment time. BREAST CARE: * Wear a snug supportive bra. * For engorgement discomfort: Breast Feeding: * Apply warm moist washcloths * Express milk as needed to relieve engorgement * Wear loose clothing Bottle Feeding: * May apply ice packs * For sore nipples: * Identify correct latch-on * Apply warm moist washcloths before and after nursing * Air dry nipples after nursing * May apply Lansinoh cream to nipples ABDOMINAL INCISION: (if applicable) * Allow incision to air dry * Do NOT use lotions for powders on your incision * When showering, allow soap and water to run over the incision, but do not wash incision EPISIOTOMY/PERINEAL CARE: * Change your pad frequently throughout the day * You may take sitz baths several times a day (fill your bathtub with warm water and soak for 20 minutes.) Do NOT bathe in the water * No tub baths until seen by your physician - You may shower ACTIVITY: * Rest as much as possible. * Do not exercise or lift anything heavier than your baby (such as laundry or other children.) * Avoid stairs or driving as much as possible. * Do not put anything int
[2024-01-19 15:08] VITALS: BP 117/69; PULSE 91; RESP 18; TEMP 36.6; O2SAT 98
== END 2024-01-18 11:44 | disposition home or self-care (01) | DRG 788 ==
LOC: ANHOB2 01-18 10:49 → ANHLDR 01-19 13:53 → ANHOB2 01-19 13:53
PROVIDERS: Admitting Provider Obstetrics & Gynecology; PCP Physician Assistant; Visit Provider Obstetrics & Gynecology
PROC: 10D00Z1 Extraction of Products of Conception, Low, Open Approach (ICD-10-PCS; CPT 59514; principal; 2024-01-15 07:30)
DX: O32.1XX0 Maternal care for breech presentation, not applicable or unspecified (principal); O99.214 Obesity complicating childbirth; O36.63X0 Maternal care for excessive fetal growth, third trimester, not applicable or unspecified; Z3A.39 39 weeks gestation of pregnancy; Z37.0 Single live birth; R76.8 Other specified abnormal immunological findings in serum
CPT/HCPCS: 36415; 85025; 85027; 88307; A9270; J0690; J1200; J1756; J1885; J2274; J2371; J2405; J2590; J3010; J7050; J7120

== ENCOUNTER 2024-03-24 07:13 | Outpatient (CLI) | payer OTHER, SELFPAY ==
[2024-03-24 08:02] LABS: Beta HCG Quantitative < 2.39 mIU/ML
== END 2024-03-24 07:14 | disposition home or self-care (01) ==
LOC: ANHLAB 07:15
PROVIDERS: PCP Physician Assistant; Visit Provider Obstetrics & Gynecology
DX: R76.8 Other specified abnormal immunological findings in serum (principal); Z30.9 Encounter for contraceptive management, unspecified
CPT/HCPCS: 36415; 84702; 86850; 86880; 86902

== ENCOUNTER 2025-05-20 21:22 | Emergency (ER) | payer OTHER, SELFPAY ==
--- NOTE | ~2025-05-20 | XR_ITS ---
EXAMINATION: XR knee RT 3V, 05/20/2025 22:39 CDT HISTORY: pain, NKI COMPARISON: No comparisons available. Findings: No acute fracture or malalignment. No significant degenerative changes. Soft tissues unremarkable. Impression: No acute fracture or malalignment. Reviewed, dictated and finalized at location P. Impression: No acute fracture or malalignment.
[2025-05-20 21:25] VITALS: BP 118/77; PULSE 73; RESP 18; TEMP 36.7; O2SAT 100
[2025-05-20] MEDS: HYDROcodone/acetaminophen (*CRX) 5-325 MG TABLET 1 TAB PO (23:19)
[2025-05-20 23:23] LABS: Pregnancy On Board Control Positive
--- NOTE | 2025-05-21 01:11 | ED_ITS ---
HPI - Extremity Injury (Lower) General Chief Complaint: Extremity Injury, Lower Stated Complaint: R torn meniscus Time Seen by Provider: 05/20/25 23:55 Source: patient Mode of arrival: ambulatory Limitations: no limitations History of Present Illness HPI Narrative: Patient is a 25-year-old female who presents to the ED with report of right knee pain. Patient reports 2 nights ago, she twisted in bed and felt a pop in her right knee. Had some pain initially afterwards, but states this resolved on its own. She then stood up quickly from the couch tonight and felt a pop in her right knee again. Complains of significant pain. Has trouble ambulating, flexing/extending. Reports swelling. Denies numbness or any other injuries. States this feels similar to when she previously tore her left knee meniscus. Related Data Home Medications ?Medication ?Instructions ?Recorded ?Confirmed ?Last Taken ?Type dextroamphetamine-amphetamine ER PO 02/19/24 05/05/25 Unknown History 20 mg 24hr capsule,extend release Allergies Allergy/AdvReac Type Severity Reaction Status Date / Time No Known Allergies Allergy Verified 05/05/25 14:40 Review of Systems Review of Systems: All systems reviewed & are unremarkable except as noted in HPI. All systems reviewed & are unremarkable except as noted in HPI and below PMFSH Past Medical History Medical History Encounter for removal of intrauterine contraceptive device Single delivery by section 01/15/24 Jka antibody positive Suppression of menses ADHD CRPS (complex regional pain syndrome type I) Surgical History Surgical History H/O arthroscopic knee surgery History of kidney surgery Family History Family History Mother Thyroid cancer Father Diabetes mellitus Grandparent Diabetes mellitus Social History Social History Smoking status: Never smoker Second hand tobacco smoke exposure: No Alcohol intake: never Substance use: never Substance use type: does not use Do You Feel Safe in your Home?: Yes Lack of Transportation: No Lack of Food: Never True Current Housing: I Have Housing Concerned About Future Housing: No Difficulty Paying Gas/Electric Bills: No Difficulty Paying for Meds: No Currently Unemployed: No Education: Bachelor's Degree Difficulty w/ Childcare or Family Care: No Living arrangements: with family Occupation/Education: occupation Gender identity (if verbalized by the patient): Female Sexual Orientation (if Verbalized by the Patient): Straight or Heterosexual Spiritual care concerns: No Exam Narrative: GENERAL: Well appearing, well-nourished, non-toxic, in no acute distress. HEAD: Normocephalic, atraumatic. RESPIRATORY: Airway patent, respirations nonlabored. CARDIOVASCULAR: Regular rate and rhythm. Pedal pulses intact. MUSCULOSKELETAL: Moves all extremities. No gross deformities. Limited flexion/extension range of motion of right knee due to pain. Mild swelling noted throughout anterior right knee, tenderness to palpation throughout inferior and medial joint spaces. Sensation intact. No warmth or erythema. SKIN: Warm, dry, normal color. NEURO: A&O X3. Speech clear. No ataxic movements. PSYCHIATRIC: Appropriate mood and affect. Normal interaction. Course Vital Signs Vital signs: Vital Signs Temperature 98.1 F 05/20/25 21:25 Pulse Rate 73 05/20/25 21:25 Respiratory Rate 18 05/20/25 21:25 Blood Pressure 118/77 05/20/25 21:25 Pulse Oximetry 100 05/20/25 21:25 Oxygen Delivery Room Air 05/20/25 21:25 Temperature 98.1 F 05/20/25 21:25 Pulse Rate 68 05/21/25 01:47 Respiratory Rate 18 05/21/25 01:47 Blood Pressure 122/87 05/21/25 01:47 Pulse Oximetry 100 05/21/25 01:47 Oxygen Delivery Room Air 05/20/25 21:25 MDM - Extremity Injury (Lower) MDM Narrative Medical decision making narrative: Patient?s injury is consistent with musculoskeletal etiology. No signs of neurologic or vascular compromise on physical examination. Compartments are soft without signs of compartment syndrome. XR interpreted by myself without acute osseous abnormality, no obvious joint effusion. Pain is consistent with knee strain, possible internal derangement. Patient is felt to be stable for discharge home and further outpatient management and treatment. Given Ashkan bandage and crutches. Discussed rice therapy. Will refer to orthopedics for further evaluation. Given return precautions. She agrees with plan. Discharged in stable condition. Medical Records Attestation: I reviewed the patient's medical records. Lab Data Attestation: I reviewed the patient's lab results. Labs: Lab Results 05/20/25 Range/Units 23:09 Urine Test Negative Imaging Data Attestation: I personally reviewed and interpreted this imaging study as follows: My impression: XR R knee: no acute osseous abnormality. Discharge Plan Discharge Clinical Impression: Strain of right knee Qualifiers: Encounter type: initial encounter Qualified Code(s): S86.911A - Strain of unspecified muscle(s) and tendon(s) at lower leg level, right leg, initial encounter Patient Disposition: Home Condition: Stable Instructions: Antibiotic Form, Knee Sprain (ED), P.R.I.C.E. Treatment (ED) Additional Instructions: Recommend elevation of leg whenever able, frequent icing to right knee. Ashkan bandage for compression and support. Recommend Tylenol/ibuprofen as needed for pain. Winslow as needed for more severe pain. Follow-up with orthopedics for further evaluation. Call office on Friday to make appointment. Return to the ED if you experience worsening or severe pain/swelling, recurrent fall or injury, numbness, or any other symptoms of concern. Patient Language: Paraguayan Prescriptions: New hydrocodone-acetaminophen 5-325 mg tablet 1 tablet PO Q6H PRN (Reason: pain) Qty: 5 0RF No Action dextroamphetamine-amphetamine 20 mg capsule,extended release 24hr PO escitalopram oxalate [Lexapro] 5 mg tablet 5 mg PO DAILY Qty: 90 1RF Follow-up/Referrals: Yo Pinto MD [Physician, Orthopedics] Referral Note: ORTHOPEDICS PHYSICIAN NOT ON STAFF,NONSTAFF [Primary Care Provider] Time of Disposition: 01:19
[2025-05-21 01:47] VITALS: BP 122/87; PULSE 68; RESP 18; O2SAT 100
== END 2025-05-21 01:48 | disposition home or self-care (01) ==
PROVIDERS: Student in an Organized Health Care Education/Training Program; Emergency Provider Physician Assistant
DX: S86.911A Strain of unspecified muscle(s) and tendon(s) at lower leg level, right leg, initial encounter (principal); F90.9 Attention-deficit hyperactivity disorder, unspecified type; Z79.899 Other long term (current) drug therapy; X50.9XXA Other and unspecified overexertion or strenuous movements or postures, initial encounter
CPT/HCPCS: 73562; 81025; 99283; A9270

== ENCOUNTER 2025-05-25 15:47 | Outpatient (CLI) | payer OTHER, SELFPAY ==
--- NOTE | ~2025-05-25 | MR_ITS ---
EXAMINATION: MR knee RT wo con DATE: 05/25/2025 16:22 INDICATION: Unspecified injury of right lower leg. Right knee pain. TECHNIQUE: Magnetic resonance imaging (MRI) of the right knee was performed without intravenous contrast. Sequences included axial PD-weighted FS FSE, coronal PD-weighted FSE and PD-weighted FS FSE, sagittal PD-weighted FSE, and sagittal T2-weighted FS FSE. COMPARISON: Right knee radiographs 05/20/2025 FINDINGS: Medial compartment: Medial meniscus is normal. Medial compartment cartilage is normal. Lateral compartment: Lateral meniscus is normal. The lateral compartment cartilage is normal. Patellofemoral compartment: The patellar cartilage is normal. The trochlear cartilage is normal. Ligaments and tendons: The anterior and posterior cruciate ligaments are normal. Medial collateral ligament and lateral collateral ligament complex are intact. There is mild patellar tendinopathy. Fluid: There is a large knee joint effusion. There is trace fluid in a Messer's cyst. There is edema in the fat posterior to the femur. Bones/other: There is edema-like marrow signal intensity in femoral metaphysis, likely stress reaction. IMPRESSION: 1. Large knee joint effusion. Reviewed, dictated and finalized at location E.
--- OUTSIDE RECORDS SUMMARY | 2025-05-25 17:33 | XMS_ITS | Clinical Summary ---
Author Organization [facility] Address [address] [facility] [address] [place] [id number] Phone Care Team Providers Care Mortgage Specialist Name Role Phone Palmira Pena NP Primary Care Provider [phone] Allergies Active Allergy Reactions Criticality Noted Date Comments Latex Eye irritation Low 02/27/2021 Medications escitalopram (LEXAPRO) 5 mg tablet Take 1 tablet (5 mg total) by mouth daily 90 tablet 1 5 Active dextroamphetamine -amphetamine (ADDERALL) 5 mg tablet Take 1 tablet (5 mg total) by mouth daily 30 tablet 5 Active dextroamphetamine -amphetamine XR (ADDERALL XR) 20 mg 24 hr capsuleIndication s:Attention-Defic it Hyperactivity Disorder Take 1 capsule (20 mg total) by mouth every morning 30 capsule 5 Active dextroamphetamine -amphetamine XR (ADDERALL XR) 20 mg 24 hr capsuleIndication s:Attention-Defic it Hyperactivity Disorder Take 1 capsule (20 mg total) by mouth every morning 30 capsule 5 05/17/20 25 Discontinu ed(Reorder ) Active Problems Problem Noted Date Diagnosed Date Attention deficit hyperactivity disorder, combin ed type 10/29/2024 Overview (10/29/2024): Chronic, controlled. Patient to continue on Adderall XR 20 mg daily and an additional immediate release Adderall 5 mg PRN for long work days. Follow up in 6 months. Assessment & Plan (01/13/2025 2:52 PM CDT): Chronic, controlled. Patient to continue on Adderall XR 20 mg daily and an additional immediate release Adderall 5 mg PRN for long work days. Follow up in 6 months. Neck pain on right side 08/30/2024 Assessment & Plan (08/30/2024 7:02 AM DEXTRINE MIXER): C-spine Xray ordered. Patient to discontinue Robaxin and Naproxen. Patient prescribed Medrol dose pack and baclofen 10 mg PRN for pain. Patient referred to physical therapy. Patient instructed to call office if her pain does not improve with therapy and medication. Jka antibody positive 01/29/2024 Assessment & Plan (01/29/2024 2:28 PM CDT): newly Recurrent major depression 10/09/2022 Assessment & Plan (01/13/2025 2:50 PM CDT): Chronic, controlled with Lexapro 5 mg daily. Follow up in 6 months. Assessment & Plan (10/29/2024 4:24 PM CDT): Chronic, controlled with Lexapro 5 mg daily. Follow up in 6 months. Assessment & Plan (04/28/2024 2:28 PM CDT): Chronic, controlled without medications. Follow up in 6 months. Assessment & Plan (01/29/2024 2:23 PM CDT): This is a stable chronic condition with no SI HI continue current medications follow-up 6 months. Open door open Generalized anxiety disorder 10/09/2022 Assessment & Plan (01/13/2025 2:50 PM CDT): Chronic, controlled with Lexapro 5 mg daily. Follow up in 6 months. Assessment & Plan (10/29/2024 4:23 PM CDT): Chronic, controlled with Lexapro 5 mg daily. Follow up in 6 months. Assessment & Plan (08/30/2024 6:59 AM DEXTRINE MIXER): Chronic, controlled with Lexapro 5 mg daily. Follow up in 6 months. Assessment & Plan (04/28/2024 2:28 PM CDT): Chronic, controlled without medications. Follow up in 6 months. Assessment & Plan (01/29/2024 2:23 PM CDT): Patient is going to have a baby and wants to switch her antidepressant we talked about options and agree on Zoloft once she is her OB will determine if she can continue it. We did discuss the med use potential side effects. There was no SI HI. Assessment & Plan (10/09/2022 10:39 AM DEXTRINE MIXER): Patient is going to have a baby and wants to switch her antidepressant we talked about options and agree on Zoloft once she is her OB will determine if she can continue it. We did discuss the med use potential side effects. There was no SI HI. Routine general medical exam ination at a [facility] care facility 10/08/2022 Assessment & Plan (04/28/2024 2:25 PM CDT): CBC, CMP, lipid panel UTD with stable results. Patient following with [facility], she is to sign release form to obtain last Pap. Vaccinations: Due for flu vaccine. Tdap UTD. Repeat wellness exam in one year. Assessment & Plan (10/09/2022 10:39 AM DEXTRINE MIXER): Healthcare maintenance updated screening labs ordered Encounters Date Type Department Care Team Description 04/22/2025 Orders Only [facility] Primary [facility] [facility] [address] [place] [address] Palmira Pena, CHINESE LANGUAGE PROFESSOR Attention deficit hyperactivity disorder, combined type from Last 3 Months Immunizations Immunization Administration Dates Next Due Influenza, Unspecified 08/25/2024(Deferr ed: Patient Refused),05/17/2023,06/11/2022 Tdap 12/14/2023 Surgical History Surgery Date Site/Laterality Comments SECTION Medical History Medical History Date Comments Anxiety Depression Family History Medical History Relation Name Comments Diabetes Father Ulcerative colitis Mother Relation Name Status Comments Father Alive Mother Alive Social History Tobacco Use Types Packs/Day Years Used Date Smoking Tobacco: Never Tobacco Cessation:Counseling Given: Not Answered AUDIT-C Answer Date Recorded Q1: How often do you have a drink containing alc ohol? Never 01/29/2024 Average Number of Drinks Not on file 024 Frequency of Binge Drinking Not on file 01/10 PHQ-2 Answer Date Recorded PHQ-2 Total Score (If total score is 3 or more points, staff should administer the PHQ-9) 0 10/27/2024 Personal Safety Answer Date Recorded Have you ever been in or are you currently in a harmful physical or emotional relationship or is someone making you feel afraid or unsafe? Denies 06/04/2023 Comments Unknown Sex and Gender Information Value Date Recorded Sex Assigned at Not on file Legal Sex Female 1:45 PM DEXTRINE MIXER Gender Identity Not on file Sexual Orientation Not on file Obstetrics History Para Term AB IAB SAB Ectopic Multiple Livin g Live Births 2 2 2 2 2 Date Outcome GA Total Labor Labor/2nd/3rd Weight Sex Type Anes PTL Angelique A1 A5 Name Clin Term 4.621 kg (10 lb 3 oz) CS-LT ranv Living Term Vag-S pont Living Last Filed Vital Signs Vital Sign Reading Time Taken Comments Blood Pressure 120/74 08/25/2024 4:28 PM DEXTRINE MIXER Pulse 85 08/25/2024 4:28 PM DEXTRINE MIXER Temperature 36.1 C (97 F) 08/25/2024 4:28 PM DEXTRINE MIXER Respiratory Rate 20 08/25/2024 4:28 PM DEXTRINE MIXER Oxygen Saturation 99% 08/25/2024 4:28 PM DEXTRINE MIXER Inhaled Oxygen Concentration - - Weight 81.6 kg (180 lb) 01/10/2025 3:31 PM CDT p atient stated. Height 167.6 cm (5' 6) 01/10/2025 3:31 PM CDT p t stated Body Mass Index 29.05 01/10/2025 3:31 PM CDT Plan of Treatment Health Maintenance Due Date Last Done Comments Cervical Cancer Screening 1998 Hepatitis C Screening 1998 Hepatitis B Screening 2016 HPV Vaccines (1 - 3-dose SCDM series) 2025 Regular Well Visit/Exam 18-64 04/28/2025 04/28/2024, 04/28/2024, 10/09/2022 Depression Screening 10/27/2025 10/27/2024, 04/28/2024, 03/06/2023, Additional history exists DTaP/Tdap/Td Vaccine (2 - Td or Tdap) 12/13/2033 12/14/2023 Covid-19 Vaccine Discontinued 02/27/2021, 01/30/2021 Influenza Vaccine Discontinued 05/17/2023, 06/11/2022 Pneumococcal vaccine <65 Aged Out No longer eligible based on patient's age to complete this topic Varicella Vaccines Discontinued Insurance [employer] CLAIMS [employer] CLAIMS [facility] CLAIMS [facility] CLAIMS Care Teams Mortgage Specialist Relationship Specialty Start Date End Date Palmira Pena NP [address] [place] [id number] PCP - General Family Medicine 04/28/24
== END 2025-05-25 15:48 | disposition home or self-care (01) ==
PROVIDERS: Visit Provider Orthopaedic Surgery
DX: S89.91XA Unspecified injury of right lower leg, initial encounter (principal); M25.461 Effusion, right knee; X58.XXXA Exposure to other specified factors, initial encounter
CPT/HCPCS: 73721